=== PATIENT | male | born 1980 | race Caucasian/White ===

== ENCOUNTER → 2021-07-06 | Outpatient (CLI) | payer OTHER ==
--- NOTE | 2021-07-13 14:46 | REP ---
INDICATION: LT KNEE INSTABILITY. COMPARISON: MRI 12/09/2018. TECHNIQUE: Multiple sequences obtained in the axial, coronal and sagittal planes. FINDINGS: Menisci: The medial meniscus is truncated status post partial meniscectomy. No new tear is seen compared to the prior MRI. There is mild residual linear signal in the posterior horn of the medial meniscus, unchanged. The posterior horn of the lateral meniscus is also mildly truncated, with no new tear. Cruciate ligaments: Reconstructed anterior cruciate ligament is identified with thinning and laxity in the joint, and mild increased signal on T2 weighted images in this region. This suggests a partial tear of the tendon auto graft. There also appears to be cystic degeneration of the graft in the tibial tunnel. Collateral ligaments: Intact. Extensor mechanism/patellar retinacula: Intact. Cartilage: Smooth, no osteochondral defect. There is mild diffuse chondromalacia. Bone marrow: Normal signal, no edema or occult fracture. Joint fluid: There is a small joint effusion. Popliteal region: No cyst. IMPRESSION: Truncated appearance of the menisci compatible with prior partial meniscectomies. No evidence of a new meniscal tear. Thinning, laxity and increased signal of the anterior cruciate ligament in the joint suggesting a partial tear. There also appears to be cystic degeneration of the graft in the tibial tunnel. Small joint effusion. <Electronically signed by Anastacio Obregon > 07/13/21 1289
== END ==
LOC: M RAD 07:40
PROVIDERS: ATTEND Family Medicine
DX: R93.7 Abnormal findings on diagnostic imaging of other parts of musculoskeletal system (principal); M25.362 Other instability, left knee